=== PATIENT | female | born 1960 | race Caucasian/White ===

== ENCOUNTER → 2021-07-31 | Outpatient (CLI) | payer BC ==
[~2021-07-31] VITALS: Ht 167.7 cm; Wt 109.1 kg
== END | disposition home or self-care (01) ==
LOC: PREOP 11:29
PROVIDERS: ATTEND Otolaryngology Otolaryngology/Facial Plastic Surgery
DX: Z01.818 Encounter for other preprocedural examination (principal)

== ENCOUNTER 2021-08-08 06:57 | Day surgery (SDC) | payer BC ==
[2021-08-08] VITALS (9 sets, daily range): BP systolic 145–168; BP diastolic 84–99
[~2021-08-08] VITALS: Ht 167.7 cm; Wt 109.1 kg
[2021-08-08] MEDS ORDERED: COCAINE HCL 4% 2 ML SYR ONE (07:18)
[2021-08-08] MEDS ORDERED: PHENYLEPHRINE 0.25% NASAL SPR (NEO-SYNEPHRINE) 15 ML NS ONE (07:19)
[2021-08-08] MEDS ORDERED: LIDOCAINE/EPI 1%-1:100,000 (XYLOCAINE) 20ML ONE (07:19)
[2021-08-08] MEDS ORDERED: PHENYLEPHRINE 0.5% NASAL SPR (NEO-SYNEPHRINE) REG ONE (07:21)
[2021-08-08] MEDS: LACTATED RINGERS 1,000 ML IV PRN ×2 (07:25→09:00)
[2021-08-08] MEDS ORDERED: LOSA50TA63 PO (07:38)
[2021-08-08] MEDS ORDERED: DULO60CA59 PO (07:38)
[2021-08-08] MEDS ORDERED: TRIA1TAB3 PO (07:38)
[2021-08-08] MEDS ORDERED: MIRT-68 PO (07:38)
[2021-08-08] MEDS ORDERED: ATOR20TA66 PO (07:38)
[2021-08-08] MEDS ORDERED: ONDANSETRON 4 MG/2 ML (SDV) Z0FRAN ONE (08:21)
[2021-08-08] MEDS ORDERED: fentaNYL INJ 100 MCG/2 ML AMP ONE (08:21)
[2021-08-08] MEDS ORDERED: MIDAZOLAM 2 MG/2 ML (VERSED) VIAL ONE (08:21)
[2021-08-08] MEDS ORDERED: LIDOCAINE PF 2% 5 ML (XYLOCAINE) VIAL ONE (08:21)
[2021-08-08] MEDS ORDERED: proPOfol 200 MG/20 ML (DIPRIVAN) VIAL IV ONE (08:21)
[2021-08-08] MEDS ORDERED: GLYCOPYRROLATE 0.2 MG/ML (ROBINUL) 2 ML VIAL ONE (08:21)
[2021-08-08] MEDS ORDERED: NEOSTIGMINE 3 MG/3 ML VIAL ONE (08:21)
--- NOTE | 2021-08-08 08:34 | Progress Note-Pre Operative ---
Pre-Operative Progress Note H&P Reviewed The H&P was reviewed, patient examined and no changes noted. Date Seen by Provider: Aug 08, 2021 Time Seen by Provider: 08:15 Date H&P Reviewed: Aug 08, 2021 Time H&P Reviewed: 08:15 Pre-Operative Diagnosis: Posterior Septal Mass YE MALAGON MD Aug 08, 2021 08:34
--- NOTE | 2021-08-08 08:35 | Progress Note-Post Operative ---
Post-Operative Progess Note Surgeon (s)/Project Admin (s) Surgeon YE MALAGON MD Project Admin n/a Pre-Operative Diagnosis Posterior Septal Mass Post-Operative Diagnosis same Post-Op Procedure Note Date of Procedure: Aug 08, 2021 Name of Procedure Performed: Endoscopic Biopsy of Posterior Septal Mass Description & Findings Description and Findings: n/a Anesthesia Type get Estimated Blood Loss minimal Packing none. Specimen(s) collected/removed posterior Septal mass to pathology YE MALAGON MD Aug 08, 2021 08:35
[2021-08-08] MEDS ORDERED: HYDROcodone/APAP 5 MG/325 MG (LORTAB) TAB PO PRN (08:45)
[2021-08-08] MEDS ORDERED: D5 1/2 NS W/KCL 20 MEQ/L 1,000 ML IV SCH (08:45)
[2021-08-08] MEDS ORDERED: PROMETHAZINE INJ 25 MG/ML (PHENERGAN) AMP IVP PRN (08:45)
[2021-08-08] MEDS ORDERED: ROCURONIUM 50 MG/5 ML (ZEMURON) VIAL IV ONE (09:14)
[2021-08-08] MEDS ORDERED: SEVOFLURANE (ULTANE) 15 ML INHAL SOLN ONE (09:15)
[2021-08-08] MEDS ORDERED: ONDANSETRON 4 MG/2 ML (SDV) Z0FRAN IVP PRN (10:00)
[2021-08-08] MEDS ORDERED: morphine INJ 10 MG/ML 1ML (SYR OR VIAL) IVP ONE (10:00)
[2021-08-08] MEDS ORDERED: HYDROmorphone 2 MG/ML VIAL (DILAUDID) IV ONE (10:00)
--- NOTE | 2021-08-08 10:05 | Anesthesia-General Post-Op ---
General Patient Condition Mental Status/LOC: Same as Preop Cardiovascular: Satisfactory Nausea/Vomiting: Absent Respiratory: Satisfactory Pain: Controlled Complications: Absent Post Op Complications Complications None Follow Up Care/Instructions Patient Instructions None needed. Anesthesia/Patient Condition Patient Condition Patient is doing well, no complaints, stable vital signs, no apparent adverse anesthesia problems. GUSTAVO ZAYAS DO Aug 08, 2021 10:05
== END 2021-08-08 11:21 ==
LOC: SDC 06:57
PROVIDERS: ATTEND Otolaryngology Otolaryngology/Facial Plastic Surgery
DX: J34.89 Other specified disorders of nose and nasal sinuses (principal); C30.0 Malignant neoplasm of nasal cavity; M19.90 Unspecified osteoarthritis, unspecified site; I10 Essential (primary) hypertension; E78.5 Hyperlipidemia, unspecified; E66.9 Obesity, unspecified; Z68.39 Body mass index [BMI] 39.0-39.9, adult
CPT/HCPCS: 87081